=== PATIENT | female | born 1995 ===

== ENCOUNTER 2021-06-20 19:38 | Emergency (ER) | payer MEDICAID ==
[2021-06-20 20:07] VITALS: TEMP 98.9
[2021-06-20 21:07] LABS: BASO # 0.1 K/mm3 (0.0-0.2); BASO % 0.5 % (0.0-2.0); EOS # 0.1 K/mm3 (0.0-0.7); EOS % 0.8 % (0.0-4.0); GRAN # 6.7 K/mm3 (1.4-6.5); GRAN % 60.7 % (42.2-75.2); HEMATOCRIT 45.1 % (37.0-47.0); HEMOGLOBIN 15.8 g/dl (12.5-16.0); LYMPH # 3.4 K/mm3 (1.2-3.4); LYMPH % 30.6 % (20.0-51.0); MEAN CELL VOLUME 92 fl (80.0-100.0); MEAN CORPUSCULAR HEMOGLOBIN 32 pg (27-31); MEAN CORPUSCULAR HGB CONC 35 g/dl (33.0-37.0); MEAN PLATELET VOLUME 8.8 fl (7.4-10.4); MONO # 0.8 K/mm3 (0.1-0.6); MONO % 7.1 % (1.7-9.3); PLATELET COUNT 286 K/mm3 (130-400); REDCELL DISTRIBUTION WIDTH-CV 11.8 % (11.5-14.5)
[2021-06-20 21:55] LABS: TROPONIN-I 0.01 ng/mL (0.00-0.033); TSH w REFLEX 0.935 uIU/mL (0.350-4.940)
[2021-06-20 22:35] VITALS: BP 117/73; PULSE 75
== END 2021-06-20 22:35 | disposition home or self-care (01) ==
LOC: COL.ER 19:38
PROVIDERS: Physician Assistant
DX: F41.9 Anxiety disorder, unspecified (principal); N91.2 Amenorrhea, unspecified